=== PATIENT | male | born 1985 | race Caucasian/White ===

== ENCOUNTER 2017-07-30 16:57 | Emergency (ER) | payer SELFPAY ==
[~2017-07-30] VITALS: Ht 182.9 cm; Wt 80.0 kg
[~2017-07-30 16:57] MED LIST: BACT800T5 PO; CEPH500T PO; CYCL-36 PO; HYDR-3535 PO
[2017-07-30 17:12] VITALS: BP 135/79; PULSE 60; RESP 8; TEMP 98; O2SAT 93
[2017-07-30] MEDS ORDERED: NALOXONE HCL 2 MG/2 ML VIAL IV PUSH ONE (17:30)
[2017-07-30] MEDS ORDERED: NALOXONE HCL 2 MG/2 ML VIAL IM ONE (17:30)
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
[2017-07-30 18:11] VITALS: O2SAT 100
[2017-07-30 18:21] LABS: AUTOMATED NEUTROPHIL # 4.6 TH/MM3 (1.8-7.7); BASOPHIL % 0.4 % (0.0-2.0); EOSINOPHIL % 0.4 % (0.0-4.0); HEMATOCRIT 34.7 % (39.0-51.0); HEMO FLAGS DIFF FINAL; LYMPHOCYTE # 0.8 TH/MM3 (1.0-4.8); MEAN CORPUSCULAR HGB CONC 34.5 % (32.0-36.0); MONO % 8.1 % (0.0-8.0); NEUT % 77.1 % (16.0-70.0); PLATELET COUNT 252 TH/MM3 (150-450); RED BLOOD COUNT 3.99 MIL/MM3 (4.50-5.90); RED CELL DISTRIBUTION WIDTH 12.5 % (11.6-17.2); WHITE BLOOD COUNT 5.9 TH/MM3 (4.0-11.0)
[2017-07-30] MEDS ORDERED: PROCHLORPERAZINE INJ 10 MG/2 ML VIAL IV PUSH ONE (18:30)
[2017-07-30 18:49] LABS: BICARBONATE 28.6 MEQ/L (21.0-32.0)
[2017-07-30 20:00] VITALS: BP 119/65; PULSE 59; RESP 16; O2SAT 98
--- NOTE | 2017-07-30 23:59 | PD ---
Data Data Last Documented VS Vital Signs Date Time Temp Pulse Resp B/P (MAP) Pulse Ox O2 Delivery O2 Flow Rate FiO2 07/30/17 20:00 59 16 119/65 (83) 98 Room Air 07/30/17 17:12 98.0 Orders Orders Complete Blood Count With Diff (07/30/17 17:29) Basic Metabolic Panel (Bmp) (07/30/17 17:29) Iv Access Insert/Monitor (07/30/17 17:29) Ecg Monitoring (07/30/17 17:29) Oximetry (07/30/17 17:29) Drug Screen, Random Urine (07/30/17 17:29) Alcohol (Ethanol) (07/30/17 17:29) Naloxone Inj (Narcan Inj) (07/30/17 17:30) Naloxone Inj (Narcan Inj) (07/30/17 17:30) Prochlorperazine Inj (Compazine Inj) (07/30/17 18:30) Labs Laboratory Tests Test 07/30/17 17:48 07/30/17 20:20 White Blood Count 5.9 TH/MM3 Red Blood Count 3.99 MIL/MM3 Hemoglobin 12.0 GM/DL Hematocrit 34.7 % Mean Corpuscular Volume 87.0 FL Mean Corpuscular Hemoglobin 30.0 PG Mean Corpuscular Hemoglobin Concent 34.5 % Red Cell Distribution Width 12.5 % Platelet Count 252 TH/MM3 Mean Platelet Volume 7.1 FL Neutrophils (%) (Auto) 77.1 % Lymphocytes (%) (Auto) 14.0 % Monocytes (%) (Auto) 8.1 % Eosinophils (%) (Auto) 0.4 % Basophils (%) (Auto) 0.4 % Neutrophils # (Auto) 4.6 TH/MM3 Lymphocytes # (Auto) 0.8 TH/MM3 Monocytes # (Auto) 0.5 TH/MM3 Eosinophils # (Auto) 0.0 TH/MM3 Basophils # (Auto) 0.0 TH/MM3 CBC Comment DIFF FINAL Differential Comment Blood Urea Nitrogen 12 MG/DL Creatinine 0.98 MG/DL Random Glucose 87 MG/DL Calcium Level 9.4 MG/DL Sodium Level 136 MEQ/L Potassium Level 4.0 MEQ/L Chloride Level 100 MEQ/L Carbon Dioxide Level 28.6 MEQ/L Anion Gap 7 MEQ/L Estimat Glomerular Filtration Rate 89 ML/MIN Ethyl Alcohol Level 6 MG/DL Urine Opiates Screen POS Urine Barbiturates Screen NEG Urine Amphetamines Screen NEG Urine Benzodiazepines Screen POS Urine Cocaine Screen POS Urine Cannabinoids Screen POS MDM Supervised Visit with NIMESH: No Narrative Course This is a 31-year-old male who presents to the emergency department having had an unintentional overdose on heroin. Patient was given Narcan by the prior provider. He's been resting comfortably, with a normal oxygen saturation easily arousable and ate some crackers while he was here. We've observed him now for 6 hours. I think he's safe for discharge. Diagnosis Primary Impression: Opiate overdose Patient Instructions: General Instructions, Opioid Overdose (ED) Departure Forms: Tests/Procedures Scripts No Active Prescriptions or Reported Meds Disposition: 01 DISCHARGE HOME Condition: Good Dede Kendall MD Jul 30, 2017 23:59
[2017-07-31] VITALS: BP 110/65; PULSE 59; RESP 16; O2SAT 98
== END 2017-07-31 00:38 | disposition home or self-care (01) ==
LOC: NEPC 16:57
DX: T40.1X1A Poisoning by heroin, accidental (unintentional), initial encounter (principal); J45.909 Unspecified asthma, uncomplicated; I48.91 Unspecified atrial fibrillation
CPT/HCPCS: 80048; 80307; 85025; 96372; 96374; 96375; 99284; J0780; J2310